=== PATIENT | male | born 1995 | race African-American/Black ===

== ENCOUNTER 2023-06-10 21:36 | Emergency (ER) | payer OTHER ==
[~2023-06-10] VITALS: Ht 182.9 cm; Wt 64.9 kg
[2023-06-10 22:05] VITALS: BP 130/88; PULSE 78; RESP 15; O2SAT 97
[2023-06-10 22:45] VITALS: TEMP 98.4
[2023-06-10] MEDS ORDERED: ACETAMINOPHEN 325MG TABLET PO ONE (22:45)
[2023-06-10] MEDS ORDERED: LIDOCAINE HCL/PF 1% 10 MG/ML 5ML VIAL INFIL ONE (23:00)
[2023-06-10] MEDS ORDERED: SULF1TAB48 MT (23:14)
== END 2023-06-10 23:32 | disposition home or self-care (01) ==
LOC: ER 21:36
DX: L02.411 Cutaneous abscess of right axilla (principal)
CPT/HCPCS: 99283; 10060; J3490